=== PATIENT | female | born 1960 | race African-American/Black ===

== ENCOUNTER 2016-07-08 20:11 | Emergency (ER) | payer BC, OTHER ==
[~2016-07-08] VITALS: Ht 165.1 cm; Wt 94.8 kg
[~2016-07-08 20:11] MED LIST: ALBUTEROL2 PUFFS/17 IN; BENTYL10 MG PO; BUPAP1 TA1 PO; BUPAP1 TAB PO; FLEXERIL10 MG PO; HYDROCODONE-APA1 TA1 PO; LORTAB 5/500 501 TAB PO; LORTAB 500 MG-71 TAB PO; LOVENOX 4040 MG/0.1 IJ; MEDROL 4MG. DOSE4 MG PO; MOTRIN 600MG.600 MG PO; MULTI VITAMINS1 TAB PO; PHENERGAN 25MG.25 M1 PO; RESTORIL 15MG C15 MG PO; VICODIN 5/500 T1 TAB PO; ZITHROMAX Z-PA250 M1 PO
[2016-07-08] MEDS ORDERED: APAP/BUTALBITAL1 TA1 PO (20:24)
[2016-07-08] MEDS ORDERED: RESTORIL 15MG C15 MG PO (20:24)
--- NOTE | 2016-07-08 20:40 | Emergency Room Report ---
History of Present Illness Time Seen by [id number] Presenting Problem in Triage Pt arrived:Walked Presenting Problem:PT STATES COUGHING, SNEEZING FOR PAST COUPLE OF DAYS. STATES VOMITING BEGAN TONIGHT. STATES HEAD CONGESTION. DENIES DIARRHEA. 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 STATES BODY ACHE AND HEADACHE. 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 N Clinical Suspician of Infection? N Mental Status: 1 - Regular (Normal Baseline) Sepsis Risk:Possible Sepsis Risk Have you (or family members/close friends) recently traveled outside the [place]? N If Yes, where/when: Have you had exposure to infectious disease within the past month? N TB? Other? 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 No Angina: No [place]: No Hypertension? Yes Hyperlipidemia? No CHF? No DVT? No PE? No COPD? No Asthma? Yes Anemia? No GERD? No Gastric ulcers? No GI Bleed? No Hernia? No Thyroid Problems? No Hypothyroidism? No CVA? No Seizures? No Diabetes? No Renal Insuffiency? No End Stage Renal Disease? No UTI? No Stones? No BPH? No GB Disease: Yes Nephritic Syndrome? No Asplenia? No Hepatitis? No Sickle Cell Disease? No Arthritis? No Migraines? No Cataracts? No Glaucoma? No MRSA? No HIV? No TB? No Anxiety? No Depression? No Cancer? No More? 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 Respiratory see HPI, cough, denies wheezing Cardiovascular denies chest pain, denies syncope Gastrointestinal denies abdominal pain, nausea Genitourinary denies: dysuria, frequency. Musculoskeletal denies back pain, denies joint pain, denies joint swelling, denies neck pain Skin denies rash Psychiatric/Neurological denies headache, denies seizure Physical Exam Vital Signs Vital Signs Date Time Temp Pulse Resp B/P Pulse O2 O2 Flow FiO2 Ox Delivery Rate 07/08 2123 71 20 132/82 93 07/08 2016 98.9 95 20 158/95 97 - WBC >12,000 or <4,000 or 10% bands? 2 or more SIRS Criteria Met? B/P:132/82 MAP:116 Creatinine >2.0? UA output<0.5ml/kg/hr for 2 hrs? Platelet count >100,000? Lactate >2.0mmol/1? INR >1.2 or PTT > than 60 sec? Evidence of Organ Dysfunction? Provider documented clinical suspician of infection? N Sepsis Criteria Count: 2 Sepsis Risk: Possible Sepsis Risk General Appearance no apparent distress Eye Exam - bilateral eye PERRL, bilateral eye EOMI Ear, Nose, Throat normal ENT inspection Neck supple Respiratory Status No: respiratory distress. Lung Sounds bilateral: rhonchi. 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 No Results/Orders Laboratory Tests 07/08/162024: Influenza Type A Ag NOT DETECTED, Influenza Type B Ag NOT DETECTED Orders Procedure Date/time Status CHEST(2 VIEWS-NOT PORTABLE) 07/08 2154 Active INFLUENZA A&B ANTIGENS 07/08 2025 Complete XRAY/CT/US XRAY/CT/US XRAY chest XR interpretation by reviewed by me Xray Results normal/NAD Departure Departure Time of Disposition 2200 Disposition DC Home or Self Care(routine) Clinical Impression Primary Impression: Bronchitis Condition STABLE Referrals Alvaro Ugalde MD (Family) Patient Instructions DI for Cough -- Adult Additional Instructions fluids and see pcp for follow up Discharge Counseling Counseled pt/family regarding diagnosis, test results, medications/RX, follow up needs Prescriptions Current Visit Scripts Ciprofloxacin HCl (Cipro 500MG TAB) 500 MG PO BID #14 TAB Prednisone (Prednisone 20MG) 20 MG PO BID #10 TAB BENZONATATE (Benzonatate) 100 MG PO TID #15 CAP ED Critical Care Critical Care No at [id number]
--- NOTE | 2016-07-08 20:40 | Emergency Room Report ---
History of Present Illness Time Seen by [id number] Presenting Problem in Triage Pt arrived:Walked Presenting Problem:PT STATES COUGHING, SNEEZING FOR PAST COUPLE OF DAYS. STATES VOMITING BEGAN TONIGHT. STATES HEAD CONGESTION. DENIES DIARRHEA. 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 STATES BODY ACHE AND HEADACHE. 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 N Clinical Suspician of Infection? N Mental Status: 1 - Regular (Normal Baseline) Sepsis Risk:Possible Sepsis Risk Have you (or family members/close friends) recently traveled outside the [place]? N If Yes, where/when: Have you had exposure to infectious disease within the past month? N TB? Other? 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 No Angina: No [place]: No Hypertension? Yes Hyperlipidemia? No CHF? No DVT? No PE? No COPD? No Asthma? Yes Anemia? No GERD? No Gastric ulcers? No GI Bleed? No Hernia? No Thyroid Problems? No Hypothyroidism? No CVA? No Seizures? No Diabetes? No Renal Insuffiency? No End Stage Renal Disease? No UTI? No Stones? No BPH? No GB Disease: Yes Nephritic Syndrome? No Asplenia? No Hepatitis? No Sickle Cell Disease? No Arthritis? No Migraines? No Cataracts? No Glaucoma? No MRSA? No HIV? No TB? No Anxiety? No Depression? No Cancer? No More? 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 Respiratory see HPI, cough, denies wheezing Cardiovascular denies chest pain, denies syncope Gastrointestinal denies abdominal pain, nausea Genitourinary denies: dysuria, frequency. Musculoskeletal denies back pain, denies joint pain, denies joint swelling, denies neck pain Skin denies rash Psychiatric/Neurological denies headache, denies seizure Physical Exam Vital Signs Vital Signs Date Time Temp Pulse Resp B/P Pulse O2 O2 Flow FiO2 Ox Delivery Rate 07/08 2123 71 20 132/82 93 07/08 2016 98.9 95 20 158/95 97 - WBC >12,000 or <4,000 or 10% bands? 2 or more SIRS Criteria Met? B/P:132/82 MAP:116 Creatinine >2.0? UA output<0.5ml/kg/hr for 2 hrs? Platelet count >100,000? Lactate >2.0mmol/1? INR >1.2 or PTT > than 60 sec? Evidence of Organ Dysfunction? Provider documented clinical suspician of infection? N Sepsis Criteria Count: 2 Sepsis Risk: Possible Sepsis Risk General Appearance no apparent distress Eye Exam - bilateral eye PERRL, bilateral eye EOMI Ear, Nose, Throat normal ENT inspection Neck supple Respiratory Status No: respiratory distress. Lung Sounds bilateral: rhonchi. 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 No Results/Orders Laboratory Tests 07/08/162024: Influenza Type A Ag NOT DETECTED, Influenza Type B Ag NOT DETECTED Orders Procedure Date/time Status CHEST(2 VIEWS-NOT PORTABLE) 07/08 2154 Active INFLUENZA A&B ANTIGENS 07/08 2025 Complete XRAY/CT/US XRAY/CT/US XRAY chest XR interpretation by reviewed by me Xray Results normal/NAD Departure Departure Time of Disposition 2200 Disposition DC Home or Self Care(routine) Clinical Impression Primary Impression: Bronchitis Condition STABLE Referrals Alvaro Ugalde MD (Family) Patient Instructions DI for Cough -- Adult Additional Instructions fluids and see pcp for follow up Discharge Counseling Counseled pt/family regarding diagnosis, test results, medications/RX, follow up needs Prescriptions Current Visit Scripts Ciprofloxacin HCl (Cipro 500MG TAB) 500 MG PO BID #14 TAB Prednisone (Prednisone 20MG) 20 MG PO BID #10 TAB BENZONATATE (Benzonatate) 100 MG PO TID #15 CAP ED Critical Care Critical Care No at [id number]
[2016-07-08] MEDS ORDERED: CIPRO 500MG TA500 MG PO (22:26)
[2016-07-08] MEDS ORDERED: PREDNISONE 20MG20 MG PO (22:26)
[2016-07-08] MEDS ORDERED: TESSALON PERLE100 MG PO (22:26)
[2016-07-08 22:55] VITALS: BP 152/90
--- NOTE | 2016-07-09 07:32 | RADIOLOGY REPORT PS360 ---
CHEST(2 VIEWS-NOT PORTABLE) HISTORY: cough COMPARISON: 06/09/2014 FINDINGS: The cardiomediastinal silhouette and pulmonary vascularity are within normal limits. The lungs are clear without infiltrates, suspicious nodules, or pleural effusions. Old left sixth and seventh rib fractures. IMPRESSION: No change with no acute finding
== END 2016-07-08 22:56 | disposition home or self-care (01) ==
LOC: ER 20:11
DX: J20.9 Acute bronchitis, unspecified (principal)

== ENCOUNTER → 2016-12-15 | Outpatient (CLI) | payer BC, OTHER ==
[~2016-12-15] MED LIST changes: +APAP/BUTALBITAL1 TA1 PO; +CIPRO 500MG TA500 MG PO; +PREDNISONE 20MG20 MG PO; +TESSALON PERLE100 MG PO
--- NOTE | 2016-12-18 18:52 | RADIOLOGY REPORT PS360 ---
DIG MAMM-SCREEN WIL W/CAD CAD Screening COMPARISON: Digital mammograms 04/10/2012 and 12/12/2015 INDICATION: There is no personal or family history of breast cancer TECHNIQUE: Standard CC and MLO images were obtained. R2 CAD reviewed. FINDINGS: The breasts are composed primarily of fat with scattered fibroglandular densities throughout each breast. There Is faint arterial calcification in each breast. There is no suspicious lesion and no suspicious microcalcifications. Several small nodes in both axilla. IMPRESSION: Fibrofatty parenchyma with no suspicious lesion seen recommend yearly follow-up BI-RADS CATEGORY: 2_Benign RECOMMENDED FOLLOWUP: 12M 12 MONTH FOLLOW-UP (A letter has been sent to the patient regarding results of the study.)
== END ==
LOC: RAD 09:24
DX: Z12.31 Encounter for screening mammogram for malignant neoplasm of breast (principal)
CPT/HCPCS: G0202

== ENCOUNTER 2017-01-02 06:52 | Day surgery (SDC) | payer BC, OTHER ==
--- NOTE | 2017-01-02 08:19 | Operative Note ---
Upper GI Endoscopy Procedure date: 01/02/17 Date of : 56 Procedure:Upper GI Endoscopy Esophagogastroduodenoscopy with cold biopsies Indications: Mrs. Mendoza is a 56-year-old female who has had epigastric abdominal pain and dyspepsia. 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 She did have a complicated course requiring revisions. She lost down to 110 pounds. More recently she has had significant excruciating epigastric pain which has resulted in a few trips to the emergency department. She did have an upper gastrointestinal series and CAT scan last year showing no significant abnormality. The patient's recent blood work did show a mildly elevated alkaline phosphatase. She did have marked vitamin D and B12 deficiency. The patient does have constipation/incomplete evacuation and bloating. She has noted some hemorrhoidal bleeding. Her last endoscopy was 6-7 years ago. Her last colonoscopy was 10 years ago at the [facility] and was normal. Performing Provider: Grupo Jeronimo MD Referring Provider: Michael Junior M.D./Alavro Ugalde M.D. Sedation: Fentanyl 100 mg IV/Versed 7 mg IV Procedure: Prior to the procedure, a history and physical exam was performed, and patients medications and allergies were reviewed. The risks and benefits of the procedure and the sedation options and risks were discussed with the patient. All questions were answered and informed consent was obtained. The patient was brought to the procedure room. Patient identification and proposed procedure were verified by the physician and the nurse. The patient was placed in a left lateral decubitus position and the scope was passed under direct vision. Throughout the procedure, the patient's blood pressure, pulse, and oxygen saturations were monitored continuously. The endoscope was introduced through the mouth, and advanced to the second part of duodenum. The upper GI endoscopy was accomplished without difficulty. The patient tolerated the procedure well. Findings: The scope was passed directly into the upper esophagus and advanced to the bilateral limbs of jejunum in the afferent blind limb and the efferent Len limb distally approximate 20 cm. Upon withdrawal, both limbs appeared normal. The scope was withdrawn to the stomal anastomosis which was very widely patent. The gastric pouch was small. There was no evidence of anastomotic ulceration or gastric ulceration. There was no fistula. Cold biopsies were taken from the gastric pouch. There was no significant hiatal hernia. The scope was withdrawn into the esophagus. There is no evidence of reflux esophagitis or Malin's. The remainder of the esophageal mucosa was normal. Immediate complications: None EBL (ml): 0 Impression: 1. Normal Len-en-Y gastric bypass anatomy Recommendations: The patient does have dyspepsia. Certainly this may be related to her obstipation. Certainly ulcers in the [place] stomach or bypassed duodenum and gastric antrum with gastritis can result in this type of pain. Given the fact that her alkaline phosphatase is elevated, it is possible that she also has CBD stricture or stone. This would not be accessible orally via ERCP. I would consider MRCP. I will proceed with colonoscopy. at 0820
--- NOTE | 2017-01-02 08:19 | Operative Note ---
Upper GI Endoscopy Procedure date: 01/02/17 Date of : 56 Procedure:Upper GI Endoscopy Esophagogastroduodenoscopy with cold biopsies Indications: Mrs. Mendoza is a 56-year-old female who has had epigastric abdominal pain and dyspepsia. 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 She did have a complicated course requiring revisions. She lost down to 110 pounds. More recently she has had significant excruciating epigastric pain which has resulted in a few trips to the emergency department. She did have an upper gastrointestinal series and CAT scan last year showing no significant abnormality. The patient's recent blood work did show a mildly elevated alkaline phosphatase. She did have marked vitamin D and B12 deficiency. The patient does have constipation/incomplete evacuation and bloating. She has noted some hemorrhoidal bleeding. Her last endoscopy was 6-7 years ago. Her last colonoscopy was 10 years ago at the [facility] and was normal. Performing Provider: Grupo Jeronimo MD Referring Provider: Michael Junior M.D./Alvaro Ugalde M.D. Sedation: Fentanyl 100 mg IV/Versed 7 mg IV Procedure: Prior to the procedure, a history and physical exam was performed, and patients medications and allergies were reviewed. The risks and benefits of the procedure and the sedation options and risks were discussed with the patient. All questions were answered and informed consent was obtained. The patient was brought to the procedure room. Patient identification and proposed procedure were verified by the physician and the nurse. The patient was placed in a left lateral decubitus position and the scope was passed under direct vision. Throughout the procedure, the patient's blood pressure, pulse, and oxygen saturations were monitored continuously. The endoscope was introduced through the mouth, and advanced to the second part of duodenum. The upper GI endoscopy was accomplished without difficulty. The patient tolerated the procedure well. Findings: The scope was passed directly into the upper esophagus and advanced to the bilateral limbs of jejunum in the afferent blind limb and the efferent Len limb distally approximate 20 cm. Upon withdrawal, both limbs appeared normal. The scope was withdrawn to the stomal anastomosis which was very widely patent. The gastric pouch was small. There was no evidence of anastomotic ulceration or gastric ulceration. There was no fistula. Cold biopsies were taken from the gastric pouch. There was no significant hiatal hernia. The scope was withdrawn into the esophagus. There is no evidence of reflux esophagitis or Malin's. The remainder of the esophageal mucosa was normal. Immediate complications: None EBL (ml): 0 Impression: 1. Normal Len-en-Y gastric bypass anatomy Recommendations: The patient does have dyspepsia. Certainly this may be related to her obstipation. Certainly ulcers in the [place] stomach or bypassed duodenum and gastric antrum with gastritis can result in this type of pain. Given the fact that her alkaline phosphatase is elevated, it is possible that she also has CBD stricture or stone. This would not be accessible orally via ERCP. I would consider MRCP. I will proceed with colonoscopy. at 0867
--- NOTE | 2017-01-02 08:25 | Operative Note ---
Flex Sigmoidoscopy (Kandace) Procedure date: 01/02/17 Date of : 56 Procedure:Flex Sigmoidoscopy Flexible sigmoidoscopy Indications: Mrs. Mendoza is a 56-year-old female who has had epigastric abdominal pain and dyspepsia. 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 She did have a complicated course requiring revisions. She lost down to 110 pounds. More recently she has had significant excruciating epigastric pain which has resulted in a few trips to the emergency department. She did have an upper gastrointestinal series and CAT scan last year showing no significant abnormality. The patient's recent blood work did show a mildly elevated alkaline phosphatase. She did have marked vitamin D and B12 deficiency. The patient does have constipation/incomplete evacuation and bloating. She has noted some hemorrhoidal bleeding. Her last endoscopy was 6-7 years ago. Her last colonoscopy was 10 years ago at the [facility] and was normal Performing Provider: Grupo Jeronimo MD Referrring Provider: Michael Junior M.D./Alvaro Ugalde M.D. Sedation: Fentanyl 200 mg IV/Versed 7 mg IV (combined sedation for EGD/flexible sigmoidoscopy) Procedure: Prior to the procedure, a history and physical exam was performed, and patient medications and allergies were reviewed. The risks and benefits of the procedure and the sedation options and risks were discussed with the patient. All questions were answered and informed consent was obtained. Patient identification and proposed procedure were verified by the physician and the nurse. The patient was placed in a left lateral decubitus position. Throughout the procedure, the patient's blood pressure, pulse, and oxygen saturations were monitored continuously. Findings: On digital rectal examination there was normal rectal tone there were no external hemorrhoids. The scope was then inserted through the anal canal and the rectum and advanced to 25 cm. There was copious amounts of liquid and solid stool impairing visualization of the mucosa. The procedure was aborted because of the unprepped colonoscopy. Impressions: 1. Unprepped colonoscopy Recommendations: I will recommend repeat diagnostic colonoscopy soon with improved preparation. The patient will need to initiate treatment for her obstipation. Complications: None EBL (ml): 0 at 0825
[2017-01-02 16:10] VITALS: BP 120/72
== END 2017-01-02 09:45 | disposition home or self-care (01) ==
LOC: SDC 06:52
PROVIDERS: Internal Medicine Gastroenterology
PROC: 0DB68ZX Excision of Stomach, Via Natural or Artificial Opening Endoscopic, Diagnostic (ICD-10-PCS; 2017-01-02)
PROC: 0DJD8ZZ Inspection of Lower Intestinal Tract, Via Natural or Artificial Opening Endoscopic (ICD-10-PCS; principal; 2017-01-02 08:00)
DX: K30 Functional dyspepsia (principal); Z98.84 Bariatric surgery status; Z53.09 Procedure and treatment not carried out because of other contraindication; K59.00 Constipation, unspecified; E53.8 Deficiency of other specified B group vitamins; E55.9 Vitamin D deficiency, unspecified
CPT/HCPCS: J2405

== ENCOUNTER → 2017-03-31 | Outpatient (CLI) | payer BC, OTHER ==
[2017-03-31 17:06] LABS: BUN 12 mg/dL (7-18)
[2017-03-31 17:24] LABS: GFR (ESTIMATED) 86 ML/MIN (59-)
== END ==
LOC: LAB 12:08
PROVIDERS: Nurse Practitioner Acute Care
DX: R94.5 Abnormal results of liver function studies (principal)

== ENCOUNTER → 2017-04-02 | Outpatient (CLI) | payer BC, OTHER | LOC: RAD 08:41 | DX: R94.5 Abnormal results of liver function studies (principal); R10.11 Right upper quadrant pain ==

== ENCOUNTER → 2017-04-10 | Outpatient (CLI) | payer BC, OTHER ==
--- NOTE | 2017-04-13 06:05 | RADIOLOGY REPORT PS360 ---
MRI-ABD W/WO, MRCP RECON CLINICAL INDICATION: Left and right upper quadrant pain, history gastric bypass and cholecystectomy RT SIDE ABDOMEN PAIN ORDERING PHYSICIAN: MIKE NGUYEN APRN PATIENT AGE: 57 years COMPARISON: CT scan of 02/01/2016 TECHNIQUE: Multiplanar multiecho pre and post enhanced images are obtained of the abdomen along with MRCP protocol FINDINGS: There is generalized motion artifact which does somewhat obscure fine detail. There has been prior cholecystectomy. The common hepatic duct is somewhat prominent at 9 mm. This however may be due to the physiologic response from previous cholecystectomy. The common bile duct is 5 mm. No common bile duct stones are evident. No obvious mass or stenotic lesion of the common bile duct. Pancreatic duct has an unremarkable appearance. No obvious common bile duct stones. The liver, spleen, adrenal glands, and pancreas and kidneys have an unremarkable appearance. There has been prior gastric surgery with gastric bypass best demonstrated on the CT scan. IMPRESSION: 1. Prior cholecystectomy. Minimal ectasia of the common hepatic duct with unremarkable appearing common bile duct and pancreatic duct. No strictures or common duct stones. 2. Prior gastric bypass. 3. Otherwise negative MRI of the upper abdomen limited by motion artifact
== END ==
LOC: RAD 08:24
DX: R10.11 Right upper quadrant pain (principal); R94.5 Abnormal results of liver function studies; R10.12 Left upper quadrant pain
CPT/HCPCS: A9576

== ENCOUNTER 2017-05-04 09:32 | Day surgery (SDC) | payer BC, OTHER ==
--- NOTE | 2017-05-04 11:13 | Operative Note ---
Colonoscopy ([facility]) Procedure date: 05/04/17 Date of : 56 Procedure:Colonoscopy Colonoscopy Indications: Mrs. Mendoza is a 57-year-old female with a history of RIGHT upper/lower quadrant and epigastric pain. She has had some dyspepsia. 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 The patient has had a mildly elevated alkaline phosphatase. She had marked vitamin D and B12 deficiency. She has a history of constipation/ obstipation. The patient's symptoms have significantly clinically improved with the fiber bowel regimen (MiraLAX plus Citrucel), dietary measures and BuSpar. The patient's last colonoscopy has been more than 10 years ago at the [facility]. The patient did have an attempted colonoscopy in December 2016 but this was not well prepped and the procedure was aborted. She reports no rectal bleeding, weight loss or family history of colon cancer. The patient's MRI/MRCP on April 10, 2017 showed minimal ectasia of the common hepatic duct with an unremarkable appearing common bile duct and pancreatic duct. There were no strictures or common bile duct stones. Performing Provider: Grupo Jeronimo MD Referrring Provider: Michael Junior M.D./Alvaro Ugalde M.D. Sedation: Fentanyl 200 mg IV/Versed 10 mg IV Procedure: Prior to the procedure, a history and physical exam was performed, and patient medications and allergies were reviewed. The risks and benefits of the procedure and the sedation options and risks were discussed with the patient. All questions were answered and informed consent was obtained. Patient identification and proposed procedure were verified by the physician and the nurse. The patient was placed in a left lateral decubitus position. Throughout the procedure, the patient's blood pressure, pulse, and oxygen saturations were monitored continuously. Findings: On digital rectal examination there was normal rectal tone. There were no external hemorrhoids. The colonoscope was introduced through the anal canal to the rectum and advanced to the cecum. The ileocecal valve and appendiceal orifice were identified. The scope was advanced a short distance into the ileum which appeared grossly normal. The scope was then withdrawn into the colon. The cecum, ascending, transverse, descending, sigmoid and rectum were grossly normal. There were no mucosal abnormalities identified. Upon retroflexion within the rectum there were grade 1 internal hemorrhoids. Impressions: 1. Normal colonoscopy with intubation of the terminal ileum 2. 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 The patient has clinically improved with the dietary measures (soft fiber), fiber bowel regimen (MiraLAX plus Citrucel) and the Buspar twice a day. I would continue this as maintenance therapy. The patient will not require screening/surveillance colonoscopy again for 10 years by ACS guidelines. Complications: None EBL (ml): 0 at 1112
[2017-05-04 17:07] VITALS: BP 114/68
== END 2017-05-04 12:00 | disposition home or self-care (01) ==
LOC: SDC 09:32
PROVIDERS: Internal Medicine Gastroenterology
PROC: 0DJD8ZZ Inspection of Lower Intestinal Tract, Via Natural or Artificial Opening Endoscopic (ICD-10-PCS; principal; 2017-05-04 10:30)
DX: Z12.11 Encounter for screening for malignant neoplasm of colon (principal); K64.0 First degree hemorrhoids
CPT/HCPCS: J2405